=== PATIENT | female | born 1960 | race Caucasian/White ===

== ENCOUNTER 2020-09-16 17:15 | Emergency (ER) | payer MEDICARE, SELFPAY ==
[2020-09-16 17:51] VITALS: BP 152/72; PULSE 65; RESP 20; TEMP 36.9; O2SAT 100; BMI 23.0
== END 2020-09-16 20:12 | disposition left against medical advice (07) ==
PROVIDERS: Emergency Provider Emergency Medicine
CPT/HCPCS: 99281